=== PATIENT | female | born 1975 | race Two or more races ===

== ENCOUNTER 2020-02-18 13:12 | Outpatient (CLI) | payer OTHER | END 2020-02-18 23:59 | disposition home or self-care (01) | LOC: MSC 13:12 | PROVIDERS: ATTEND Internal Medicine | DX: B35.1 Tinea unguium (principal); G47.00 Insomnia, unspecified; Z87.898 Personal history of other specified conditions; Z86.59 Personal history of other mental and behavioral disorders; Z83.3 Family history of diabetes mellitus ==

== ENCOUNTER 2020-04-12 09:54 | Outpatient (CLI) | payer OTHER | END 2020-04-12 23:59 | disposition home or self-care (01) | LOC: MSC 09:54 | PROVIDERS: ATTEND Internal Medicine | DX: R59.9 Enlarged lymph nodes, unspecified (principal); B35.1 Tinea unguium; Z86.2 Personal history of diseases of the blood and blood-forming organs and certain disorders involving the immune mechanism; Z87.898 Personal history of other specified conditions ==